=== PATIENT | female | born 1995 | race Asian ===

== ENCOUNTER 2016-11-05 13:49 | Emergency (ER) | payer OTHER ==
[~2016-11-05] VITALS: Wt 70.0 kg
[2016-11-05 14:56] LABS: ADD UMIC YES; UR ASCORBIC ACID 40 mg/dL (NEGATIVE); UR BILIRUBIN (Dip) NEGATIVE (NEGATIVE); UR BLOOD (Dip) NEGATIVE (NEGATIVE); UR CLARITY SLIGHTLY CLOUDY (CLEAR); UR COLOR YELLOW (YELLOW); UR GLUCOSE (Dip) NEGATIVE (NEGATIVE); UR KETONES (Dip) NEGATIVE (NEGATIVE); UR LEUKOCYTE ESTERASE (Dip) 2+ Leu/ul (NEGATIVE); UR NITRITE (Dip) NEGATIVE (NEGATIVE); UR RBC 0 /HPF (0-5); UR SPECIFIC GRAVITY (Dip) 1.028 (1.003-1.030); UR SQUAMOUS EPITHELIAL CELL FEW /HPF (FEW); UR TOTAL PROTEIN (Dip) NEGATIVE (NEGATIVE); UR UROBILINOGEN (Dip) NEGATIVE (NEGATIVE)
--- NOTE | 2016-11-05 15:02 | ERD ---
ER Documentation Chief Complaint Date/Time DATE: 11/05/16 TIME: 15:01 Chief Complaint VAG BLEED X 1 DAY 5 WEEKS HPI This a 21-year-old female who presents the emergency department today complaining of vaginal spotting started this afternoon. States she is approximately 5 weeks . States her last menstrual period was September 30. States sometimes she has some abdominal cramping but denies any currently. Denies any nausea vomiting. States she has her first appointment with her OB/ TIME MOTION ANALYST on Tuesday of next week. ROS All systems reviewed and are negative except as per history of present illness. Medications Home Meds Active Scripts Nitrofurantoin Monohyd Macrocr* (Macrobid*) 100 Mg Capsr, 100 MG PO BID for 7 Days, CAP Prov:SASHA WRIGHT PA-C 11/05/16 Acetaminophen* (Tylophen*) 500 Mg Capsule, 1 CAP PO Q6H Y for PAIN AND OR ELEVATED TEMP, #30 CAP Prov:SASHA WRIGHT PA-C 11/05/16 Allergies Allergies: Coded Allergies: No Known Allergy (Unverified , 11/05/16) Physical Exam Vitals Vital Signs Date Time Temp Pulse Resp B/P Pulse Ox O2 Delivery O2 Flow Rate FiO2 11/05/16 16:24 98.2 84 16 124/78 99 Room Air 11/05/16 13:53 98.0 92 18 128/74 99 Physical Exam Const: No acute distress Head: Atraumatic Eyes: Normal Conjunctiva ENT: Normal External Ears, Nose and Mouth. Neck: Full range of motion..~ No meningismus. Resp: Clear to auscultation bilaterally Cardio: Regular rate and rhythm, no murmurs Abd: Soft, non tender, non distended. Normal bowel sounds Skin: No petechiae or rashes Back: No midline or flank tenderness Ext: No cyanosis, or edema Neur: Awake and alert Psych: Normal Mood and Affect Result Diagram: 11/05/16 1510 Results 24 hrs Laboratory Tests Test 11/05/16 14:41 11/05/16 15:10 Urine Color YELLOW Urine Clarity SLIGHTLY CLOUDY Urine pH 6.0 Urine Specific [place] 1.028 Urine Ketones NEGATIVEmg/dL Urine Nitrite NEGATIVEmg/dL Urine Bilirubin NEGATIVEmg/dL Urine Urobilinogen NEGATIVEmg/dL Urine Leukocyte Esterase 2+Dominick/ul Urine Microscopic RBC 0/HPF Urine Microscopic WBC 4/HPF Urine Squamous Epithelial Cells FEW/HPF Urine Hemoglobin NEGATIVEmg/dL Urine Glucose NEGATIVEmg/dL Urine Total Protein NEGATIVEmg/dl White Blood Count 9.810^3/ul Red Blood Count 4.6610^6/ul Hemoglobin 13.7g/dl Hematocrit 40.9% Mean Corpuscular Volume 87.8fl Mean Corpuscular Hemoglobin 29.4pg Mean Corpuscular Hemoglobin Concent 33.5g/dl Red Cell Distribution Width 12.0% Platelet Count 38231^3/UL Mean Platelet Volume 8.6fl Neutrophils % 70.8% Lymphocytes % 21.7% Monocytes % 6.6% Eosinophils % 0.2% Basophils % 0.4% Nucleated Red Blood Cells % 0.0/100WBC Neutrophils # 6.910^3/ul Lymphocytes # 2.110^3/ul Monocytes # 0.610^3/ul Eosinophils # 0.010^3/ul Basophils # 0.010^3/ul Nucleated Red Blood Cells # 0.010^3/ul Beta HCG, Quantitative 1013.3mIU/ml DIAGNOSTIC IMAGING REPORT Patient: OLEKSANDR ALVARADO : 1995 Age: 21 Sex: F MR #: [id number] DOS: 11/05/16 0000 Ordering MD: SASHA WRIGHT PA-C Location: [facility] Room/Bed: PROCEDURE: US Pelvis. CLINICAL INDICATION: vaginal bleeding TECHNIQUE: Multiple sonographic images of the pelvis were obtained utilizing a transabdominal and endovaginal technique. The images were reviewed on a PACS workstation. COMPARISON: None. FINDINGS: The uterus is normal in size and demonstrates a normal appearance of the myometrium. The endometrial stripe is homogeneous in appearance and has the thickness of 15 mm. No intrauterine gestation is noted. Normal Doppler flow is identified in both ovaries. The right ovary measures 2.9 x 2.0 x 2.7 cm. There is a corpus luteum cyst in the right ovary. The left ovary measures 2.2 x 1.2 x 2.3 cm. There is a small amount of free fluid in the pelvis and bilateral adnexa. RPTAT: AA IMPRESSION: No intrauterine gestation visualized. Differential diagnosis includes early , missed or ectopic . Follow-up ultrasound and HCG levels is recommended. Small amount of free fluid in the pelvis. Corpus luteum cyst in the right ovary. .Eladio Jesus MD, MD Date Time Electronically viewed and signed by .Eladio Jesus MD, on 11/05/2016 15: 06 .S/ CC: SASHA WRIGHT PA-C Procedures/MDM This is a 21-year-old female who presents to the emergency department today complaining of vaginal bleeding. Patient states she is approximately 5 weeks. Given this I did obtain a complete OB workup. Laboratory work shows no elevated white blood cell count. She is not anemic. Platelets are within normal limits. UA shows 2+ leukocyte Estrace. Patient will be given a prescription for Macrobid for urinary tract infection Beta quant hCG 1013.3 Rh status A+ Ultrasound shows no intrauterine gestation visualized. There is a small amount of free fluid in the pelvis and bilateral adnexa. There is normal Doppler flow identified in both ovaries. There is a corpus luteum cyst in the right ovary. Given that patient had no intrauterine and had free fluid in the bilateral adnexa and pelvis I did place a call to Dr. Benoit, the laborist crop pest control specialist. He has recommended close follow-up repeat beta quant in 48 hours as well as a repeat ultrasound. Patient did indicate that she has an appointment with her PROM BURN OFF OPERATOR on Tuesday. I have explained to her that she does need to see her doctor at that appointment. Patient symptoms at this time is consistent with vaginal bleeding in early . Other differentials to consider early normal versus early failed versus placenta previa versus subchorionic hemorrhage. Patient is afebrile and otherwise well-appearing. I have low suspicion for ectopic , tubo ovarian abscess, ovarian torsion however given no IUP I cannot rule out ectopic at this time although patient is below the discriminatory zone with her beta quant. I have explained the results to the patient and her sister. I have explained to the patient that they need to follow-up in 48 hours for a repeat beta quant. She was given a prescription for Tylenol and Macrobid At this time the patient is stable for discharge and outpatient management. Patient should follow up with their PCP in the next 1-2 days. They may return to the emergency department sooner for any persistent or worsening of symptoms. Patient and sister understood and agreed with the plan. Departure Diagnosis: Primary Impression: Vaginal bleeding in patient at less than 20 weeks gestation Additional Impression: UTI (urinary tract infection) Urinary tract infection type: site unspecified Hematuria presence: without hematuria Qualified Code: N39.0 - Urinary tract infection without hematuria, site unspecified Condition: SASHA Lopez PA-C Nov 05, 2016 15:02
--- NOTE | 2016-11-05 15:06 | RADRPT ---
PROCEDURE: US Pelvis. CLINICAL INDICATION: vaginal bleeding TECHNIQUE: Multiple sonographic images of the pelvis were obtained utilizing a transabdominal and endovaginal technique. The images were reviewed on a PACS workstation. COMPARISON: None. FINDINGS: The uterus is normal in size and demonstrates a normal appearance of the myometrium. The endometria l stripe is homogeneous in appearance and has the thickness of 15 mm. No intrauterine gestation is noted. Normal Doppler flow is identified in both ovaries. The right ovary measures 2.9 x 2.0 x 2.7 cm. There is a corpus luteum cyst in the right ovary. The left ovary measures 2.2 x 1.2 x 2.3 cm. There is a small amount of free fluid in the pelvis and bilateral adnexa. RPTAT: AA IMPRESSION: No intrauterine gestation visualized. Differential diagnosis includes early , missed or ectopic . Follow-up ultrasound and HCG levels is recommended. Small amount of free fluid in the pelvis. Corpus luteum cyst in the right ovary. .Eladio Jesus MD, MD Date Time Electronically viewed and signed by .Eladio Jesus MD, on 11/05/2016 15:06 .S/
[2016-11-05 15:18] LABS: BASOPHILS % 0.4 % (0.0-2.0); EOSINOPHILS % 0.2 % (0.0-7.0); HEMATOCRIT 40.9 % (37.0-47.0); HEMOGLOBIN 13.7 g/dl (12.0-16.0); LYMPHOCYTES # 2.1 10^3/ul (0.8-2.9); LYMPHOCYTES % 21.7 % (15.0-51.0); MEAN CORPUSCULAR HEMOGLOBIN 29.4 pg (29.0-33.0); MEAN CORPUSCULAR HGB CONC 33.5 g/dl (32.0-37.0); MEAN CORPUSCULAR VOLUME 87.8 fl (82.0-101.0); MEAN PLATELET VOLUME 8.6 fl (7.4-10.4); MONOCYTE # 0.6 10^3/ul (0.3-0.9); MONOCYTES % 6.6 % (0.0-11.0); NEUTROPHIL # 6.9 10^3/ul (1.6-7.5); NEUTROPHILS % 70.8 % (39.0-77.0); PLATELET COUNT 344 10^3/UL (140-415); RED BLOOD COUNT 4.66 10^6/ul (4.20-5.40); WHITE BLOOD COUNT 9.8 10^3/ul (4.8-10.8)
[2016-11-05] MEDS ORDERED: NITR-58 PO (16:18)
[2016-11-05] MEDS ORDERED: ACET500C5 PO (16:18)
[2016-11-05 16:24] VITALS: BP 124/78; PULSE 84; RESP 16; TEMP 98.2
== END 2016-11-05 16:25 | disposition home or self-care (01) ==
LOC: FTE 13:49
DX: O20.9 Hemorrhage in early pregnancy, unspecified (principal); O23.41 Unspecified infection of urinary tract in pregnancy, first trimester; Z3A.01 Less than 8 weeks gestation of pregnancy
CPT/HCPCS: 36415; 76801; 76817; 81001; 84702; 85025; 86900; 86901; Z7502

== ENCOUNTER 2017-07-03 17:49 | Inpatient (IN) | END 2017-07-06 14:45 | disposition home or self-care (01) | DRG 775 ==

== ENCOUNTER 2017-07-12 05:24 | Emergency (ER) | END 2017-07-12 08:32 | disposition home or self-care (01) ==